=== PATIENT | male | born 1990 | race Hispanic/Latino ===

== ENCOUNTER 2024-06-13 06:54 | Emergency (ER) | payer SELFPAY ==
[2024-06-13 06:55] VITALS: BP 153/95
--- NOTE | 2024-06-13 07:34 | ED.GENMED ---
History of Present Illness
General
Chief Complaint: Skin Surface Trauma
Source: patient and network analyst
Exam Limitations: none
Time Seen by Provider: 06/13/24 07:18
History of Present Illness
History of Present Illness:
Patient with swelling to the right anterior forehead for weeks. May have had it drained in the past. Initially reported is possibly hit his head at that time but now denying it. Some clear drainage at night. No fever chills or other complaints
Past History
Past History
ED Past Medical History: None
Review of Systems
Review of Systems
Constitutional: Denies fever or chills
Phy Exam
Physical Exam
Physical Exam:
General: Nontoxic appearing in no distress
Skin: Warm and dry, no rash
Neuro: Alert, nontoxic, grossly nonfocal
Psychiatric: Good eye contact and appropriate
Scalp: Approximately 2 cm relatively fluctuant mass to the right anterior scalp. Appears shaved around this area. Small open wound in the center that appears posttraumatic. No drainage. No warmth erythema. No purulent drainage.
Course
Vital Signs
Initial and Last Documented VS:
Initial Vital Signs
Temp Pulse Resp BP Pulse Ox
98.7 F 76 16 153/95 95
06/13/24 06:55 06/13/24 06:55 06/13/24 06:55 06/13/24 06:55 06/13/24 06:55
Last Documented Vital Signs
Temp Pulse Resp BP Pulse Ox
98.7 F 76 16 153/95 95
06/13/24 06:55 06/13/24 06:55 06/13/24 06:55 06/13/24 06:55 06/13/24 06:55
Procedures
Incision/Drainage/Joint Aspiration
Right Anterior Scalp:
Anethesia: 1% Lidocaine with Epi
Preparation: cleaned with Betadine
Type of procedure: drain
Nature of site: other
Description of abscess: less than 3cm
Loculations broken up: No
How much fluid was obtained?: none
Fluid description: bloody
MDM/Problems Addressed
Differential Diagnosis Includes:
Abscess versus hematoma versus inflammation.
*Pulse Oximetry
Patient hypoxic: no
*Critical Care Note
Total Time (30-74mins, 75-104mins- exclusive of procedures): Not Applicable
Update Note
Update Note:
No purulent drainage. All inflammation. Will cover with antibiotics to follow-up
ED Attending Note
-
Portions of this chart may have been created with voice recognition software.� Occasional wrong word or��sound alike� substitutions may have occurred due to the inherent limitations of voice recognition software.
Discharge Plan
Departure
Patient Disposition: Home (Routine Discharge)
Date of Disposition: 06/13/24
Time of Disposition: 07:36
Patient with high blood pressure during this ER visit?: Yes
Discharge Problem:
Right forehead swelling
Instructions: BLOOD PRESSURE
Prescriptions:
New
doxycycline hyclate 100 mg capsule
100 mg PO BID 10 Days Qty: 20 0RF
Referrals:
[facility] [[facility]]
Activity Restrictions/Additional Instructions:
Antibiotics as directed
I would recommend calling the [facility] for close follow-up
However return sooner with increased swelling drainage fever chills pain or any other concerning symptoms
Interventions
Interventions:
*Risk Screen - Suicide Last Done: 06/13/24 06:59
*Neglect/Abuse Screening Last Done: 06/13/24 06:59
Discharge Date and Time
Print Language: GUYANESE
[2024-06-13] MEDS: VIBRAMYCIN 100 MG PO (08:26)
== END 2024-06-13 08:35 | disposition home or self-care (01) ==
LOC: EMR 06:54
PROVIDERS: EMERGENCY PHYSICIAN Emergency Medicine
DX: R22.0 Localized swelling, mass and lump, head (principal); R03.0 Elevated blood-pressure reading, without diagnosis of hypertension
CPT/HCPCS: 99283